=== PATIENT | male | born 1965 | race Hispanic/Latino ===

== ENCOUNTER 2018-03-27 16:03 | Emergency (ER) | payer MEDICAID ==
[2018-03-27 16:17] VITALS: BMI 30.6
[2018-03-27 16:20] VITALS: BP 100/69; PULSE 96; RESP 18; TEMP 98.3; O2SAT 95
--- NOTE | 2018-03-27 20:41 | ED PDOC ---
Arrival/HPI - General Chief Complaint: Abnormal Skin Integrity Time Seen by Provider: 03/27/18 16:27 Historian: Patient - History of Present Illness Narrative History of Present Illness (Text): 03/27/18 20:38 A 52 year old male presents to the emergency department complaining of bites to bilateral arms for the past couple of days. Patient reports using lotions and vaseline, with no relief of symptom. He reports recently being at the [facility]. Patient denies any fever, chills, nausea, vomiting, abdominal pain, chest pain, shortness of breath or any other complaints. Time/Duration: Other (couple of days) Symptom Course: Unchanged Context: Other Past Medical History - Provider Review Nursing Documentation Reviewed: Yes - Infectious Disease Hx of Infectious Diseases: None - Musculoskeletal/Rheumatological Hx Falls: No - Psychiatric Hx Psychophysiologic Disorder: Yes Hx Bipolar Disorder: Yes Hx Depression: Yes Hx Hallucinations: Yes (auditory and visual) Hx Post Traumatic Stress Disorder: Yes Hx Substance Use: Yes Other/Comment: anger issues Family/Social History - Physician Review Nursing Documentation Reviewed: Yes Family/Social History: No Known Family HX Smoking Status: Current Some Days Smoker Hx Alcohol Use: No (pt. denies etoh use) Hx Substance Use: Yes Substance used: heroine, cocaine Allergies/Home Meds Allergies/Adverse Reactions: Allergies No Known Allergies Allergy (Verified 02/05/16 16:17) Review of Systems - Physician Review All systems were reviewed & negative as marked: Yes - Review of Systems Constitutional: absent: Fevers, Night Sweats Respiratory: absent: SOB Cardiovascular: absent: Chest Pain Gastrointestinal: absent: Abdominal Pain, Nausea, Vomiting Skin: Rash (bites to bilateral arms) Physical Exam Vital Signs Reviewed: Yes Vital Signs Temp Pulse Resp BP Pulse Ox 03/27/18 16:03 98.3 F 96 H 18 100/69 95 Temperature: Afebrile Blood Pressure: Normal Pulse: Tachycardic Respiratory Rate: Normal Appearance: Positive for: Well-Appearing, Non-Toxic, Comfortable Pain Distress: None Mental Status: Positive for: Alert and Oriented X 3 - Systems Exam Head: Present: Atraumatic, Normocephalic Pupils: Present: PERRL Extroacular Muscles: Present: EOMI Conjunctiva: Present: Normal Mouth: Present: Moist Mucous Membranes Neck: Present: Normal Range of Motion Respiratory/Chest: Present: Clear to Auscultation, Good Air Exchange. No: Respiratory Distress, Accessory Muscle Use Cardiovascular: Present: Regular Rate and Rhythm, Normal S1, S2. No: Murmurs Abdomen: No: Tenderness, Distention, Peritoneal Signs Back: Present: Normal Inspection Upper Extremity: Present: Normal Inspection. No: Cyanosis, Edema Lower Extremity: Present: Normal Inspection. No: Edema Neurological: Present: GCS=15, CN II-XII Intact, Speech Normal Skin: Present: Warm, Dry, Rashes (slightly raised erythematous papular rash to bilateral forearms and upper left extremity, no drainage), Normal Color Psychiatric: Present: Alert, Oriented x 3, Normal Insight, Normal Concentration Medical Decision Making ED Course and Treatment: 03/27/18 20:38 Impression: A 52 year old male with bites to bilateral arms. Progress Notes: I have discussed the plan with the patient, who expresses understanding. Patient in agreement with plan to be discharged home. Patient is stable for discharge. Patient was instructed to follow up with physician or return if symptoms worsen or new concerning symptoms arise. - Scribe Statement The provider has reviewed the documentation as recorded by the Corwin Bowling Provider Scribe Attestation: All medical record entries made by the Bjornibjosué were at my direction and personally dictated by me. I have reviewed the chart and agree that the record accurately reflects my personal performance of the history, physical exam, medical decision making, and the department course for this patient. I have also personally directed, reviewed, and agree with the discharge instructions and disposition. Disposition/Present on Arrival - Present on Arrival Any Indicators Present on Arrival: No History of DVT/PE: No History of Uncontrolled Diabetes: No Urinary Catheter: No History of Decub. Ulcer: No History Surgical Site Infection Following: None - Disposition Have Diagnosis and Disposition been Completed?: Yes Diagnosis: Bug bites Disposition: HOME/ ROUTINE Disposition Time: 16:45 Condition: GOOD Discharge Instructions (ExitCare): Insect Bites and Stings (DC) Additional Instructions: Thank you for letting us take care of you today. The emergency medical care you received today was directed at your acute symptoms. If you were prescribed any medication, please fill it and take as directed. It may take several days for your symptoms to resolve. Return to the Emergency Department if your symptoms worsen, do not improve, or if you have any other problems. Please contact your doctor or call one of the physicians/clinics you have been referred to that are listed on the Patient Visit Information form that is included in your discharge packet. Bring any paperwork you were given at discharge with you along with any medications you are taking to your follow up visit. Our treatment cannot replace ongoing medical care by a primary care provider (PCP) outside of the emergency department. Thank you for allowing the [facility] team to be part of your care today. INSPECT ALL SHEETS, MATTRESS AND CLOTHES FOR BUGS. Follow up with your primary care doctor in 2-3 days for re-evaluation and further management. Prescriptions: Hydrocortisone/Aloe Vera [Hydrocortisone Plus 1% Cream] 1 dose TP BID PRN #1 cream..g. PRN Reason: Rash Referrals: Paxton Cuevas MD [Primary Care Provider] - Follow up with primary Forms: [employer] ([place])
== END 2018-03-27 17:04 | disposition home or self-care (01) ==
LOC: ED 16:03
DX: S40.862A Insect bite (nonvenomous) of left upper arm, initial encounter (principal); S40.861A Insect bite (nonvenomous) of right upper arm, initial encounter; W57.XXXA Bitten or stung by nonvenomous insect and other nonvenomous arthropods, initial encounter; F17.200 Nicotine dependence, unspecified, uncomplicated

== ENCOUNTER 2018-06-22 05:08 | Emergency (ER) | payer MEDICAID ==
[2018-06-22 05:10] VITALS: BMI 30.6
--- NOTE | 2018-06-22 05:35 | ED PDOC ---
Arrival/HPI - General Chief Complaint: Alcohol Ingestion Time Seen by Provider: 06/22/18 05:31 Historian: Patient EM Caveat: Intoxicated - History of Present Illness Narrative History of Present Illness (Text): 06/22/18 05:20 52 year old male, whose past medical history includes alcohol abuse and substance abuse, presents to the emergency department intoxicated complaining of an abrasion to the left toe. Patient admits to drinking. HPI and ROS limited due to patient's state of intoxication. There are no other visible injuries. Past Medical History - Provider Review Nursing Documentation Reviewed: Yes - Infectious Disease Hx of Infectious Diseases: None - Musculoskeletal/Rheumatological Hx Falls: No - Psychiatric Hx Psychophysiologic Disorder: Yes Hx Bipolar Disorder: Yes Hx Depression: Yes Hx Hallucinations: Yes (auditory and visual) Hx Post Traumatic Stress Disorder: Yes Hx Substance Use: Yes Other/Comment: anger issues Family/Social History - Physician Review Nursing Documentation Reviewed: Yes Family/Social History: No Known Family HX Smoking Status: Current Some Days Smoker Hx Alcohol Use: No (pt. denies etoh use) Hx Substance Use: Yes Substance used: heroine, cocaine Allergies/Home Meds Allergies/Adverse Reactions: Allergies No Known Allergies Allergy (Verified 02/05/16 16:17) Home Medications: Home Meds Medication Instructions Recorded Confirmed No Known Home Med 06/22/18 06/22/18 Review of Systems - Physician Review All systems were reviewed & negative as marked: Yes - Review of Systems Systems not reviewed;Unavailable: Intoxicated Physical Exam Vital Signs Temp Pulse Resp BP Pulse Ox 06/22/18 05:24 98.5 F 90 18 111/69 98 Temperature: Afebrile Blood Pressure: Normal Pulse: Regular Respiratory Rate: Normal Appearance: Positive for: Well-Appearing, Non-Toxic, Comfortable Pain Distress: None Mental Status: Positive for: other (Alert and intoxicated) - Systems Exam Head: Present: Atraumatic, Normocephalic Pupils: Present: PERRL Extroacular Muscles: Present: EOMI Conjunctiva: Present: Normal Mouth: Present: Moist Mucous Membranes, Other (Alcohol on breath) Neck: Present: Normal Range of Motion Respiratory/Chest: Present: Clear to Auscultation, Good Air Exchange. No: Respiratory Distress, Accessory Muscle Use Cardiovascular: Present: Regular Rate and Rhythm, Normal S1, S2. No: Murmurs Abdomen: No: Tenderness, Distention, Peritoneal Signs Back: Present: Normal Inspection Upper Extremity: Present: Normal Inspection. No: Cyanosis, Edema Lower Extremity: Present: Normal Inspection. No: Edema Neurological: Present: GCS=15, CN II-XII Intact, Speech Normal Skin: Present: Warm, Dry, Normal Color, Abrasion (to the left great toe). No: Rashes Psychiatric: Present: Alert, Intoxicated Medical Decision Making ED Course and Treatment: 06/22/18 05:05 Impression: 52 year old male presents intoxicated complaining of an abrasion to the left great toe. Plan: -- Reassess and disposition Prior Visits: Notes and results from previous visits were reviewed. Progress Notes: - Lab Interpretations Lab Results: Lab Results 06/22/18 05:23: POC Glucose (mg/dL) 132 H - Transfer of Care Patient signed out to Dr:Miguel Mendez Other: sobriety - Scribe Statement The provider has reviewed the documentation as recorded by the Scribe Axel Peres Provider Scribe Attestation: All medical record entries made by the Scribe were at my direction and personally dictated by me. I have reviewed the chart and agree that the record accurately reflects my personal performance of the history, physical exam, medical decision making, and the department course for this patient. I have also personally directed, reviewed, and agree with the discharge instructions and disposition. Disposition/Present on Arrival - Present on Arrival Any Indicators Present on Arrival: No History of DVT/PE: No History of Uncontrolled Diabetes: No Urinary Catheter: No History of Decub. Ulcer: No History Surgical Site Infection Following: None - Disposition Have Diagnosis and Disposition been Completed?: Yes Diagnosis: Alcohol intoxication, Toe abrasion Disposition Time: 07:00 Condition: GOOD Forms: Where Was it Filmed (Citizen Of [place])
--- NOTE | 2018-06-22 07:29 | ED PDOC ---
Physical Exam Vital Signs Temp Pulse Resp BP Pulse Ox 06/22/18 07:53 98.3 F 87 18 115/75 98 06/22/18 05:24 98.5 F 90 18 111/69 98 Medical Decision Making ED Course and Treatment: 06/22/18 07:00 Case endorsed to me by Dr. Vaughn. Patient is a 52 year old male, whose past medical history includes alcohol abuse and substance abuse, presented to the emergency department intoxicated complaining of an abrasion to the left toe. Patient is currently sleeping with no complaints and is pending sobriety. 06/22/18 13:45 On reevaluation the patient feels better and is in no acute distress. I have discussed the results and plan with the patient, who expresses understanding. Patient given the opportunity to ask question, all questions were answered and there is agreement with the plan to discharge the patient home. Patient is stable for discharge and is awake, alert, and ambulating. - Lab Interpretations Lab Results: Lab Results 06/22/18 05:23: POC Glucose (mg/dL) 132 H - Scribe Statement The provider has reviewed the documentation as recorded by the Scribe Meenu Roberts Provider Scribe Attestation: All medical record entries made by the Scribe were at my direction and personally dictated by me. I have reviewed the chart and agree that the record accurately reflects my personal performance of the history, physical exam, medical decision making, and the department course for this patient. I have also personally directed, reviewed, and agree with the discharge instructions and disposition. Disposition/Present on Arrival - Present on Arrival Any Indicators Present on Arrival: No History of DVT/PE: No History of Uncontrolled Diabetes: No Urinary Catheter: No History of Decub. Ulcer: No History Surgical Site Infection Following: None - Disposition Have Diagnosis and Disposition been Completed?: Yes Diagnosis: Alcohol intoxication, Toe abrasion Disposition: HOME/ ROUTINE Disposition Time: 14:15 Patient Problems: Current Active Problems Problem Status Onset Alcohol intoxication Acute Toe abrasion Acute Condition: GOOD Discharge Instructions (ExitCare): Alcohol Abuse and Alcoholism (DC), Skin Abrasions (DC) Additional Instructions: MONAE PALMA, thank you for letting us take care of you today. Your provider was Jaky Mendez MD and you were treated for LACERATION LEFT BIG TOE. The emergency medical care you received today was directed at your acute symptoms. If you were prescribed any medication, please fill it and take as directed. It may take several days for your symptoms to resolve. Return to the Emergency Department if your symptoms worsen, do not improve, or if you have any other problems. Please contact your doctor or call one of the physicians/clinics you have been referred to that are listed on the Patient Visit Information form that is included in your discharge packet. Bring any paperwork you were given at discharge with you along with any medications you are taking to your follow up visit. Our treatment cannot replace ongoing medical care by a primary care provider outside of the emergency department. Thank you for allowing the [facility] team to be part of your care today. If you had an X-Ray or CT scan: A Radiologist will review the ED reading if any change in treatment is needed we will contact you. If you had a blood, urine, or wound culture: It will take several days for the results, if any change in treatment is needed we will contact you. If you had an STI test: It will take 48 hours for the results. Please call after 1 week if you have not heard back. Referrals: Paxton Cuevas MD [Primary Care Provider] - Follow up with primary Forms: [employer] ([place])
[2018-06-22 14:31] VITALS: BP 122/86; PULSE 82; RESP 16; TEMP 98; O2SAT 99
== END 2018-06-22 14:32 | disposition home or self-care (01) ==
LOC: ED 05:08
DX: F10.129 Alcohol abuse with intoxication, unspecified (principal); S90.412A Abrasion, left great toe, initial encounter; X58.XXXA Exposure to other specified factors, initial encounter; Y92.9 Unspecified place or not applicable